=== PATIENT | male | born 1955 | race Caucasian/White ===

== ENCOUNTER 2020-10-08 15:52 | Outpatient (REF) | payer OTHER, SELFPAY ==
[2020-10-08 22:44] LABS: Calculated LDL 89 mg/dL (<100); Cholesterol 187 mg/dL (<200); HDL Cholesterol 51 mg/dL (40-60); Triglyceride 236 mg/dL (<150)
== END 2020-10-08 15:53 | disposition home or self-care (01) ==
LOC: NCHCN 15:52
PROVIDERS: Visit Provider Family Medicine
DX: Z00.00 Encounter for general adult medical examination without abnormal findings (principal); Z13.220 Encounter for screening for lipoid disorders
CPT/HCPCS: 80061